=== PATIENT | male | born 1970 | race American Indian/Alaskan Native ===

== ENCOUNTER 2018-02-25 08:28 | Emergency (ER) | payer MEDICAID, OTHER ==
[2018-02-25 08:41] VITALS: BMI 28.7
[2018-02-25 08:51] VITALS: BP 134/83; PULSE 86; RESP 18; TEMP 97.9; O2SAT 98
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
--- NOTE | 2018-02-25 10:13 | RAD ---
Date of service: 02/25/2018 PROCEDURE: Radiographs of the Lumbar Spine. HISTORY: r/o fx COMPARISON: No prior. FINDINGS: BONES: Alignment appears satisfactory. No listhesis. No acute displaced fracture identified. DISC SPACES: Unremarkable. OTHER FINDINGS: None. IMPRESSION: No acute displaced fracture or subluxation identified.
--- NOTE | 2018-02-25 10:14 | RAD ---
PROCEDURE: Right foot Radiographs. HISTORY: r/o fx COMPARISON: None available. FINDINGS: BONES: No acute displaced fracture. JOINTS: No dislocation. SOFT TISSUES: Unremarkable. No evidence of radiopaque foreign body. OTHER FINDINGS: None. IMPRESSION: No acute displaced fracture, dislocation, or significant joint effusion identified. If symptoms persist, or if there is continued clinical concern, x-ray follow-up in 7-10 days should be considered.
== END 2018-02-25 10:22 | disposition home or self-care (01) ==
LOC: ED 08:28
DX: M54.5 Low back pain (principal); B35.3 Tinea pedis